=== PATIENT | female | born 1955 | race Caucasian/White ===

== ENCOUNTER 2018-11-06 14:33 | Outpatient (CLI) | payer OTHER ==
[2018-11-06] MEDS ORDERED: IBUP200C8 PO (15:10)
[2018-11-06] MEDS ORDERED: [UNRECOGNIZED DRUG - CODE] NS (15:10)
[2018-11-06] MEDS ORDERED: LEVO137T2 PO (15:10)
[2018-11-06] MEDS ORDERED: FLUT9.9S NS (15:10)
[2018-11-06 15:32] LABS: BASOPHILS # (AUTO) 0.07 x10^3/uL (0-0.1); BASOPHILS % (AUTO) 1 % (0-1); EOSINOPHILS # (AUTO) 0.22 x10^3/uL (0-0.4); EOSINOPHILS % (AUTO) 2 % (1-7); LYMPHOCYTES # (AUTO) 2.36 x10^3/uL (1-3.4); LYMPHOCYTES % (AUTO) 21 % (22-44); MD NO; MEAN CORPUSCULAR HGB CONC 32.5 g/dL (32.4-35.8); MEAN CORPUSCULAR VOLUME 89.3 fL (80-100); MONOCYTES # (AUTO) 0.62 x10^3/uL (0.2-0.8); MONOCYTES % (AUTO) 5 % (2-9); NEUTROPHILS # (AUTO) 8.25 x10^3/uL (1.8-6.8); NEUTROPHILS % (AUTO) 72 % (42-75); PLATELET COUNT 428 x10^3/uL (130-400); RED BLOOD COUNT 4.75 x10^6/uL (3.82-5.3); RED CELL DISTRIBUTION WIDTH 13.8 % (9.6-15.2)
[2018-11-06 15:47] LABS: ALBUMIN 3.7 g/dL (3.4-5.0); ANION GAP 7 mmol/L (5-15); CALCIUM 8.7 mg/dL (8.5-10.1); CHLORIDE 110 mmol/L (98-107)
[2018-11-06 15:49] LABS: ALANINE AMINOTRANSFERASE 19 U/L (12-78); ALKALINE PHOSPHATASE 78 U/L (45-117); BILIRUBIN,TOTAL 0.3 mg/dL (0.2-1.0); CREATININE 1.05 mg/dL (0.55-1.02); INTERNATIONAL NORMALIZED RATIO 0.94 (0.93-1.1); PROTHROMBIN TIME 9.9 Seconds (9.6-11.5); TOTAL PROTEIN 7.7 g/dL (6.4-8.2)
[2018-11-06 16:13] LABS: HEMOGLOBIN A1C 5.9 % (4.2-6.3)
== END 2018-11-06 23:59 | disposition home or self-care (01) ==
LOC: STAR 14:33
PROVIDERS: ATTEND Orthopaedic Surgery
DX: Z01.818 Encounter for other preprocedural examination (principal); M16.12 Unilateral primary osteoarthritis, left hip
CPT/HCPCS: 36415; 80053; 83036; 85025; 85610; 85730; 87081; 87806; 93005; G0475

== ENCOUNTER 2018-11-11 08:45 | Inpatient (IN) | payer OTHER ==
[2018-11-06 15:14] VITALS: BP 152/91
[~2018-11-11] VITALS: Ht 162.6 cm; Wt 95.7 kg
[~2018-11-11 08:45] MED LIST: FLUT9.9S NS; IBUP200C8 PO; LEVO137T2 PO; [UNRECOGNIZED DRUG - CODE] NS
[2018-11-18] MEDS ORDERED: EPINEPHRINE 1 MG/ML, 1ML ONE (07:28)
[2018-11-18] MEDS ORDERED: ROPIvacaine/PF 0.2%, 20 ML ONE (07:28)
[2018-11-18] MEDS ORDERED: TRANEXAMIC ACID 100 MG/ML, 10ML ONE ×4 (07:28→07:50)
[2018-11-18] MEDS ORDERED: KETOROLAC 60 MG/2 ML ONE (07:28)
[2018-11-18] MEDS ORDERED: SODIUM CHLORIDE 0.9% 50 ML ONE (07:28)
[2018-11-18] MEDS ORDERED: LACTATED RINGERS 1,000 ML IV SCH (12:10)
[2018-11-18] MEDS ORDERED: GABAPENTIN 300 MG CAPSULE PO ONE (12:30)
[2018-11-18] MEDS ORDERED: ACETAMINOPHEN 500 MG TABLET PO ONE (12:30)
[2018-11-18] MEDS ORDERED: PSYLLIUM PACKET PO PRN (14:30)
[2018-11-18] MEDS ORDERED: ALUMINUM/MAG/SIMETHICONE 30 ML UDC PO PRN (14:30)
[2018-11-18] MEDS ORDERED: DIPHENHYDRAMINE 50 MG/ML, 1ML IVPush PRN (14:30)
[2018-11-18] MEDS ORDERED: BISACODYL 10 MG SUPP PR PRN (14:30)
[2018-11-18] MEDS ORDERED: ONDANSETRON 4 MG TABLET PO PRN (14:30)
[2018-11-18] MEDS ORDERED: ACETAMINOPHEN 650 MG/20.3 ML UDC PO PRN (14:30)
[2018-11-18] MEDS ORDERED: TRANEXAMIC ACID 1,000 MG in SODIUM CHLORIDE 0.9% 100 ML IVPB ONE (14:30)
[2018-11-18] MEDS ORDERED: SENNA/DOCUSATE TABLET PO PRN (14:30)
[2018-11-18] MEDS ORDERED: HYDROmorphone 1 MG/ML, 1ML INJ IVPush PRN (14:30)
[2018-11-18] MEDS ORDERED: DIPHENHYDRAMINE 50 MG CAPSULE PO PRN (14:30)
[2018-11-18] MEDS ORDERED: ONDANSETRON 2MG/ML, 2ML IV PRN (14:30)
[2018-11-18] MEDS ORDERED: PROMETHAZINE 25 MG/ML, 1ML IM PRN (14:30)
[2018-11-18] MEDS ORDERED: MAGNESIUM HYDROXIDE 8%, 30ML UDC PO PRN (14:30)
[2018-11-18] MEDS ORDERED: DEXAMETHASONE 4 MG/ML, 1ML IVPush SCH (14:30)
[2018-11-18] MEDS ORDERED: POLYETHYLENE GLYCOL 17 GM PACKET PO PRN (14:30)
[2018-11-18] MEDS ORDERED: MIDAZOLAM 1 MG/ML, 2ML ONE (14:47)
[2018-11-18] MEDS ORDERED: FENTANYL PF 100 MCG/2ML ONE ×2 (14:47→16:35)
[2018-11-18] MEDS ORDERED: DEXAMETHASONE 4 MG/ML, 1ML ONE (14:55)
[2018-11-18] MEDS ORDERED: ROCURONIUM 10 MG/ML,10ML ONE (14:55)
[2018-11-18] MEDS ORDERED: PROPOFOL 10 MG/ML, 20ML ONE (14:55)
[2018-11-18] MEDS ORDERED: SUCCINYLCHOLINE 20 MG/ML, 10ML ONE (14:55)
[2018-11-18] MEDS ORDERED: CEFAZOLIN 1,000 MG ONE (14:55)
[2018-11-18] MEDS ORDERED: ONDANSETRON 2MG/ML, 2ML ONE (14:55)
[2018-11-18] MEDS ORDERED: HYDROmorphone 2 MG/ML, 1ML ONE (16:35)
[2018-11-18] MEDS: FENTANYL PF 100 MCG/2ML IV PRN ×2 (16:35→17:27)
[2018-11-18] MEDS: HYDROmorphone 2 MG/ML, 1ML IVPush PRN ×2 (16:39→16:47)
[2018-11-18] MEDS ORDERED: hydrALAzine 20 MG/ML, 1ML ONE (17:01)
[2018-11-18] MEDS: hydrALAzine 20 MG/ML, 1ML IV PRN ×2 (17:03→17:50)
[2018-11-18] MEDS ORDERED: LORazepam 2 MG/ML, 1ML IVPush PRN (17:30)
[2018-11-18] MEDS ORDERED: OXYcodone 5 MG/5 ML ORAL.SOL UDC PO PRN (17:30)
[2018-11-18] MEDS ORDERED: PROMETHAZINE 25 MG/ML, 1ML IV PRN (17:30)
[2018-11-18] MEDS ORDERED: LABETALOL 5 MG/ML SYRINGE IV PRN (17:30)
[2018-11-18] MEDS ORDERED: ASPIRIN 81 MG TABLET EC PO SCH (18:00)
[2018-11-18 18:52] VITALS: BP 137/80
[2018-11-18] MEDS: PHENYLEPHRINE MC SCH (19:00)
[2018-11-18] MEDS: KETOROLAC 30 MG/1 ML IV SCH (20:15)
[2018-11-18] MEDS: DOCUSATE 100 MG CAPSULE PO SCH (20:15)
[2018-11-18] MEDS: POTASSIUM CHLORIDE 20 MEQ in D5%-0.45% NACL 1,000 ML IV SCH (20:15)
[2018-11-18] MEDS: FLUTICASONE NASAL SPRAY 16GM NAS SCH (20:17)
[2018-11-18] MEDS: CEFAZOLIN PMX 1GM/50ML 50 ML IVPB SCH (21:40)
[2018-11-18] MEDS: OXYcodone IR 5MG TABLET PO PRN (22:05)
[2018-11-19 00:45] VITALS: BP 133/83
[2018-11-19] MEDS: PHENYLEPHRINE MC SCH (03:00)
[2018-11-19 03:25] VITALS: BP 136/78
[2018-11-19] MEDS: CEFAZOLIN PMX 1GM/50ML 50 ML IVPB SCH (03:55)
[2018-11-19] MEDS: KETOROLAC 30 MG/1 ML IV SCH (03:59)
[2018-11-19] MEDS ORDERED: LEVOTHYROXINE 137 MCG TABLET PO SCH (06:00)
[2018-11-19] MEDS ORDERED: DEXAMETHASONE 4 MG/ML, 1ML IVPush ONE (06:00)
[2018-11-19] MEDS: POTASSIUM CHLORIDE 20 MEQ in D5%-0.45% NACL 1,000 ML IV SCH (06:06)
[2018-11-19 07:20] VITALS: BP 128/72
[2018-11-19] MEDS: DOCUSATE 100 MG CAPSULE PO SCH (08:10)
[2018-11-19] MEDS: OXYcodone IR 5MG TABLET PO PRN (08:11)
[2018-11-19] MEDS: FLUTICASONE NASAL SPRAY 16GM NAS SCH (08:11)
[2018-11-19] MEDS ORDERED: TAMSULOSIN 0.4 MG CAP.ER.24H PO SCH (09:00)
== END 2018-11-19 10:05 | disposition home or self-care (01) | DRG 470 ==
LOC: ORIP 11-18 11:36 → 4NOR 11-18 18:36 → DCLOUNGE 11-19 09:45
PROVIDERS: ADMIT Orthopaedic Surgery; ATTEND Orthopaedic Surgery
PROC: 0SRB06Z Replacement of Left Hip Joint with Oxidized Zirconium on Polyethylene Synthetic Substitute, Open Approach (ICD-10-PCS; principal; 2018-11-18 14:00)
PROC: 5A09357 Assistance with Respiratory Ventilation, Less than 24 Consecutive Hours, Continuous Positive Airway Pressure (ICD-10-PCS; 2018-11-19)
DX: M16.12 Unilateral primary osteoarthritis, left hip (principal); I10 Essential (primary) hypertension; G47.33 Obstructive sleep apnea (adult) (pediatric); Z79.82 Long term (current) use of aspirin; Z79.899 Other long term (current) drug therapy; Z90.710 Acquired absence of both cervix and uterus
CPT/HCPCS: 36415; 72170; 85014; 85018; 86850; 86900; C1713; G0378; J0171; J0690; J1100; J1170; J1885; J2250; J2405; J2550; J2704; J2795; J3010; J3480; C1776; J0330; J0360; J7120